=== PATIENT | female | born 1960 | race Asian ===

== ENCOUNTER 2022-09-17 20:41 | Inpatient (IN) | payer OTHER ==
[~2022-09-17] VITALS: Ht 154.9 cm; Wt 66.7 kg
--- NOTE | 2022-09-17 20:49 | NUR ---
LAWANDA 76 FROM HOME FOR C/O AN ACUTE EPISODE OF CONFUSION WITH HIGH BP, LWK: 1930. PT AAOX3, -FACIAL DROOP AND NO NEURO DEFICIT ON TRIAGE.
--- NOTE | 2022-09-17 20:50 | NUR ---
PLACED COMFORTABLY IN BED, VITALS CHECKED. FRIEND AND AT BEDSIDE.
--- NOTE | 2022-09-17 20:50 | NUR ---
20GA TO LEFT AC ESTABLISHED CAR SUPERVISOR, PATENT
--- NOTE | 2022-09-17 21:09 | NUR ---
SX=[phone], AWARE
--- NOTE | 2022-09-17 21:17 | NUR ---
CODE STROKE ACTIVATED
--- NOTE | 2022-09-17 21:18 | NUR ---
MUSIC INTERN AT PT'S BEDSIDE
--- NOTE | 2022-09-17 21:19 | NUR ---
PT TRANSFERRING TO CT VIA ACLS PROTOCOL
[2022-09-17] MEDS ORDERED: IOHEXOL-350 100 ML VIAL IV ONE (21:23)
--- NOTE | 2022-09-17 21:23 | NUR ---
STROKE TELE HEALTH COMPUTER AT PT'S BEDSIDE BY RN WHEEL FITTER
--- NOTE | 2022-09-17 21:33 | NUR ---
PT RETURNED TO ER BED [address]
--- NOTE | 2022-09-17 21:42 | NUR ---
PT ON PHONE CALL WITH TELE HEALTH NEUROLOGIST
[2022-09-17 21:45] LABS: CALCIUM, SERUM 9.5 mg/dL (8.5-10.1); CARBON DIOXIDE 29 mmol/L (21-32); CHLORIDE 105 mmol/L (98-107); CREATININE 0.9 mg/dL (0.6-1.3); GLUCOSE 131 mg/dL (74-106); POTASSIUM 3.6 mmol/L (3.5-5.1); SODIUM SERUM 142 mmol/L (136-145); UREA NITROGEN, BLOOD 15 mg/dL (7-18)
--- NOTE | 2022-09-17 21:50 | NUR ---
22GA TO RT HAND ESTABLISHED
[2022-09-17 21:51] LABS: ALANINE AMINOTRANSFERASE 46 U/L (12-78); ALBUMIN 4.1 g/dL (3.4-5.0); ALKALINE PHOSPHATASE 98 U/L (46-116); ASPARTATE AMINOTRANSFERASE 26 U/L (15-37); BILIRUBIN,DIRECT 0.1 mg/dL (0.0-0.2); BILIRUBIN,TOTAL 0.5 mg/dL (0.2-1.0); TOTAL PROTEIN, SERUM 7.8 g/dL (6.4-8.2)
--- NOTE | 2022-09-17 21:52 | NUR ---
COVID SWAB DONE AND SENT TO LAB
[2022-09-17 21:55] LABS: BASOPHILS % (AUTO) 0.6 % (0.0-2.0); EOSINOPHILS % (AUTO) 3.5 % (0.0-6.0); HEMATOCRIT 44 % (33-45); HEMOGLOBIN 14.2 g/dL (11.5-14.8); LYMPHOCYTES # (AUTO) 2.3 K/uL (0.8-4.8); LYMPHOCYTES % (AUTO) 32.4 % (20.0-44.0); MEAN CORPUSCULAR HGB CONC 33 g/dl (31.0-36.0); MEAN CORPUSCULAR VOLUME 89 fL (82-100); MONOCYTES # (AUTO) 0.4 K/uL (0.1-1.30); MONOCYTES % (AUTO) 5.1 % (2.0-12.0); NEUTROPHILS # (AUTO) 4.2 K/uL (1.8-8.9); NEUTROPHILS % (AUTO) 58.4 % (43.0-81.0); PLATELET COUNT (AUTO) 229 K/uL (150-450); RED BLOOD CELL COUNT(AUTO) 4.86 MIL/uL (4.0-5.2); WHITE BLOOD COUNT (AUTO) 7.1 K/uL (4.3-11.0)
--- NOTE | 2022-09-17 22:03 | NUR ---
URINE COLLECTED AND SENT TO LAB
[2022-09-17 22:07] LABS: CHOLESTEROL 234 mg/dL (<200); HDL CHOLESTEROL 67 mg/dL (40-60); LDL 141 mg/dL (0-99); TRIGLYCERIDES 136 mg/dL (30-150)
--- NOTE | 2022-09-17 22:37 | NUR ---
MRSA COLLECTED AND SENT TO LAB
--- NOTE | 2022-09-17 22:47 | NUR ---
BED 116-1
--- NOTE | 2022-09-17 23:25 | NUR ---
REPORT GIVEN TO RASHAWN LICONA
[2022-09-17] MEDS ORDERED: ATOR10TA PO (23:40)
[2022-09-17 23:50] VITALS: BP 165/92
--- NOTE | 2022-09-17 23:50 | NUR ---
BLOW MOULDING MACHINE OPERATOR NOTES ADMITTED A 62 Y/O FEMALE PATIENT FROM ER VIA [facility], WITH DX OF ALTERED MENTAL STATUS AND HX OF HYPERLIPIDEMIA. PATIENT IS A/O X 4, AMBULATORY ON ROOM AIR SATING AT 98%. NO SOB NOTED, AFEBRILE. CONNECTED TO TELE BOX, SHOWING SINUS RHYTHM IN THE MONITOR WITH HR- 64. NOTED WITH LAC # 20 AND RIGHT HAND #22 PERIPHERAL LINE FLUSHED WITH NS, NO S/S OF INFILTRATION NOTED. VITAL SIGNS TAKEN AND RECORDED. BODY ASSESSMENT DONE, SKIN IS INTACT. ALL SAFETY PRECAUTION PROVIDED. BED IN LOWEST POSITION, LOCKED. CALL LIGHT WITH IN REACH. AT BEDSIDE AT THIS TIME.
[2022-09-18] MEDS ORDERED: Z GUARD REMEDY 4 OZ OINT TP PRN
[2022-09-18] MEDS ORDERED: ACETAMINOPHEN 325 MG TABLET PO PRN
[2022-09-18] MEDS ORDERED: MAGNESIUM HYDROXIDE 30 ML UDC PO PRN
[2022-09-18] MEDS ORDERED: ZOLPIDEM TARTRATE 5 MG TABLET PO PRN
[2022-09-18] MEDS ORDERED: ONDANSETRON HCL/PF 4 MG/2 ML VIAL IVP PRN
[2022-09-18] MEDS ORDERED: MAG HYDROX/AL HYDROX/SIMETH 30 ML UDC PO PRN
[2022-09-18] MEDS: ENOXAPARIN SODIUM 40 MG/0.4 ML DISP.SYRIN SQ SCH ×2 (01:45→20:28)
[2022-09-18 04:00] VITALS: BP 110/59
--- NOTE | 2022-09-18 07:10 | NUR ---
RN NOTES RECEIVED PT ON BED, A/O X 4, NO NEUROLOGICAL ISSUES NOTED, ON ROOM AIR , O2 SAT WNL, NO SOB NOTED, AFEBRILE. ON TELE HR IN 60S ' NOTED WITH LAC # 20 AND RIGHT HAND #22 PERIPHERAL LINE FLUSHED WITH NS, NO S/S OF INFILTRATION NOTED. SKIN IS INTACT. ALL SAFETY PRECAUTION PROVIDED. BED IN LOWEST POSITION, LOCKED. CALL LIGHT WITHIN EASY REACH. SR UP x3, CONTINUE TO MONITOR.
[2022-09-18 07:27] LABS: BASOPHILS % (AUTO) 0.9 % (0.0-2.0); EOSINOPHILS % (AUTO) 4.3 % (0.0-6.0); HEMATOCRIT 42 % (33-45); HEMOGLOBIN 13.8 g/dL (11.5-14.8); LYMPHOCYTES # (AUTO) 2.3 K/uL (0.8-4.8); LYMPHOCYTES % (AUTO) 40.8 % (20.0-44.0); MEAN CORPUSCULAR HGB CONC 33 g/dl (31.0-36.0); MEAN CORPUSCULAR VOLUME 89 fL (82-100); MONOCYTES # (AUTO) 0.3 K/uL (0.1-1.30); MONOCYTES % (AUTO) 5.6 % (2.0-12.0); NEUTROPHILS # (AUTO) 2.7 K/uL (1.8-8.9); NEUTROPHILS % (AUTO) 48.4 % (43.0-81.0); PLATELET COUNT (AUTO) 219 K/uL (150-450); RED BLOOD CELL COUNT(AUTO) 4.71 MIL/uL (4.0-5.2); WHITE BLOOD COUNT (AUTO) 5.7 K/uL (4.3-11.0)
[2022-09-18 07:46] LABS: CALCIUM, SERUM 9.1 mg/dL (8.5-10.1); CREATININE 0.8 mg/dL (0.6-1.3); MAGNESIUM 2.2 mg/dL (1.8-2.4); PHOSPHORUS 3.8 mg/dL (2.5-4.9); POTASSIUM 3.2 mmol/L (3.5-5.1)
[2022-09-18 08:00] VITALS: BP 128/67
[2022-09-18 08:25] LABS: THYROID STIMULATING HORMONE 2.574 uIU/mL (0.358-3.74)
[2022-09-18] MEDS: PANTOPRAZOLE 40 MG TABLET.DR PO SCH (08:34)
[2022-09-18] MEDS: ASPIRIN 81 MG TAB.CHEW PO SCH (08:34)
[2022-09-18] MEDS ORDERED: POTASSIUM CHLORIDE 20 MEQ TAB.PRT.SR PO ONE (10:00)
[2022-09-18] MEDS ORDERED: GADOTERATE MEGLUMINE 10 MMOL/20 ML VIAL IV ONE (10:11)
[2022-09-18 12:00] VITALS: BP 127/64
--- NOTE | 2022-09-18 12:00 | NUR ---
RN NOTES PT RESTING ON BED, DENIES ANY NEUROLOGICAL ISSUES UP TO THE BATHROOM INDEPENDENTLY , CONTINUE TO MONITOR
[2022-09-18 16:00] VITALS: BP 108/65
--- NOTE | 2022-09-18 18:21 | NUR ---
RN NOTES PT STABLE, DENIES ANY DISTESS , WILL ENDORSE TO OUTSIDE OPERATOR NURSE FOR CONTINUITY OF CARE
[2022-09-18 20:00] VITALS: BP 103/51
--- NOTE | 2022-09-18 20:00 | NUR ---
Received patient AA/OX4.Ambulatory.VSS.SR.Respiration even and unlabored.Saturation 96% on RA.Denies any discomfort.SL to LAC and RH intact. at bedside.Safety measures implemented.Plan of care reinforced.Call light at bedside.Continue monitoring.
[2022-09-19] VITALS: BP 107/68
[2022-09-19 04:00] VITALS: BP 108/65
--- NOTE | 2022-09-19 06:00 | NUR ---
Patient resting in no acute distress.Neuro status remains intact.VS stable.SR.Slept most of the night.Denies any discomfort.Ambulatory.Continue monitoring.
[2022-09-19 06:55] LABS: CALCIUM, SERUM 8.9 mg/dL (8.5-10.1); CREATININE 0.8 mg/dL (0.6-1.3); MAGNESIUM 2.2 mg/dL (1.8-2.4); POTASSIUM 3.7 mmol/L (3.5-5.1)
--- NOTE | 2022-09-19 07:30 | NUR ---
SOFTWARE ANALYST AM NOTES RECEIVED PT IN BED, A/O X 4, NO NEUROLOGIC ISSUE NOTED, ON ROOM AIR, O2 SAT 97%, RESPIRATION UNLABORED. SINUS TOOTIE HR 58 ON MONITOR. DENIES SOB CHEST PAIN/DISCOMFORT. IV ACCESS ON LAC # 20 AND RIGHT HAND #22 BOTH FLUSHES WELL, BOTH SITES CLEAR. SKIN INTACT, INDEPENDENT OF BED MOBILITY. POC DISCUSSED. VERBALIZED UNDERSTANDING. ALL SAFETY PRECAUTION PROVIDED. BED IN LOWEST POSITION, LOCKED. CALL LIGHT WITHIN EASY REACH. SR UP x3, WILL CONTINUE TO MONITOR.
[2022-09-19] MEDS: PANTOPRAZOLE 40 MG TABLET.DR PO SCH (07:58)
[2022-09-19 08:00] VITALS: BP 126/63
[2022-09-19] MEDS: ASPIRIN 81 MG TAB.CHEW PO SCH (09:04)
--- NOTE | 2022-09-19 09:30 | NUR ---
RN NOTES DUE MEDS GIVEN
[2022-09-19] MEDS ORDERED: ASPI-1169 PO (11:23)
[2022-09-19] MEDS ORDERED: ATOR40TA PO (11:23)
[2022-09-19 12:00] VITALS: BP 122/56
--- NOTE | 2022-09-19 13:05 | NUR ---
DISCHARGED NOTES PATIENT TO BE DISCHARGED TO HOME TODAY PER MD, IN STABLE CONDITION, OCNDITION. PROVIDED DC INSTRUCTIONS, HEALTH TEACHINGS AND MED RECON. IV ACCESS ON LEFT AC AND RIGHT HAND REMOVED, BOTH CATH TIP COMPLETE, APPLIED PRESSURE AND DRESSING, NO BLEEDING. ALL BELONGINGS CHECKED AND RETURNED. ALL PAPERWORKS SIGNED. PATIENT TO FOLLOW UP WITH PCP IN 1 WEEKS AND WILL MAKE OWN SCHEDULE. ACCOMPANIED TO [facility], [facility]IA PRIVATE CAR.
== END 2022-09-19 14:40 | disposition home or self-care (01) | DRG 70 ==
LOC: ER 20:42 → TELE1 23:17
PROVIDERS: ADMIT Student in an Organized Health Care Education/Training Program; ATTEND Nurse Practitioner Acute Care
DX: G45.4 Transient global amnesia (principal); G93.41 Metabolic encephalopathy; G45.9 Transient cerebral ischemic attack, unspecified; I10 Essential (primary) hypertension; R29.702 NIHSS score 2; E78.5 Hyperlipidemia, unspecified; R73.03 Prediabetes; Z20.822 Contact with and (suspected) exposure to COVID-19; Z82.3 Family history of stroke; Z79.82 Long term (current) use of aspirin; Z79.899 Other long term (current) drug therapy; E87.6 Hypokalemia
CPT/HCPCS: 36415; 70450-TC; 70496-TC; 70553-TC; 71045-TC; 80048-TC; 80061-TC; 80076-TC; 82962-TC; 83735-TC; 84100-TC; 84443-TC; 84484-TC; 85025-TC; 85730-TC; 87081-TC; 92526; 92611-TC; 93307-TC; 97112-TC; 97116-TC; 97535-TC; A9575; C9803; G0378; J1650; Q9967